=== PATIENT | male | born 1995 | race African-American/Black ===

== ENCOUNTER 2017-05-30 17:26 | Emergency (ER) | payer MEDICAID ==
[~2017-05-30] VITALS: Ht 185.4 cm; Wt 70.3 kg
--- NOTE | 2017-05-30 18:08 | Emergency Room Report ---
History of Present Illness General Chief Complaint: Male Urogenital Problems Source: Patient Present Illness HPI 21 YO Male presents to the ED c/o 12/02 in severity localized pain, swelling, and erythema of the left groin x 3 days. progressive, denies penile d/c , joint pain , dysuria, testicular swelling or testicular pain. pt. denies fevers , chills, nausea or vomiting. pt. states he recently had STD testing performed and was negative for everything, and has not had intercourse since being tested last month. pt. reports he recently shaved in the groin area, and believes that his symptoms may have been due to this. Denies CP, Palpitations, LOC, AMS, dizziness, Changes in Vision, Sensation, paresthesias, or a sudden severe headache. Allergies: Coded Allergies: No Known Allergies (Unverified , 05/30/17) Patient History Past Medical History: see triage record Past Surgical History: none Pertinent Family History: none Reviewed Nursing Documentation: PMH: Agreed, PSxH: Agreed Nursing Documentation-PMH Past Medical History: No Stated History Review of Systems All Other Systems: negative except mentioned in HPI Physical Exam Vital Signs Date Time Temp Pulse Resp B/P (MAP) Pulse Ox O2 Delivery O2 Flow Rate FiO2 05/30/17 17:29 99.1 99 14 123/82 100 Room Air Sp02 EP Interpretation: reviewed, normal General Appearance: no apparent distress, alert, GCS 15, non-toxic Head: normocephalic, atraumatic Eyes: bilateral eye normal inspection, bilateral eye PERRL ENT: hearing grossly normal, normal pharynx, no angioedema, normal voice Neck: full range of motion Respiratory: lungs clear, normal breath sounds Cardiovascular #1: regular rate, rhythm Gastrointestinal: normal bowel sounds, non tender, soft, no guarding, no rebound Rectal: deferred Genitourinary: penis normal, scrotum normal, other - soft tissue abscess with induration, erythema, and fluctuance 2 cm in size left groin, normal testicular exam no swelling cremasteric intact. Musculoskeletal: back normal, gait/station normal, normal range of motion, non- tender Neurologic: alert, oriented x3, responsive, motor strength/tone normal, sensory intact, speech normal Skin: normal color, no rash, warm/dry, well hydrated Lymphatic: no adenopathy Procedures Incision and Drainage Incision and Drainage : Consent: Verbal Blade Size: 11 I & D Procedure: betadine prep Wound Location: other - left groin Wound's Depth, Shape: superficial Wound Length (cm): 1 Wound Explored: contaminated - Moderate purulent and malodorous drainage is expressed. Irrigated w/ Saline (ccs): 500 Anesthesia: 1% Lidocaine Volume Anesthetic (ccs): 1 Splint Applied?: No Sling Applied?: No Patient Tolerated: Well Complications: None Medical Decision Making PA Attestation Dr. Townsend is my supervising Physician whom patient management has been discussed with. Diagnostic Impression: Primary Impression: Abscess ER Course Pt. presents to the ED c/o pain, swelling, and erythema of the left groin x 3 days. progressive, denies penile d/c , joint pain , dysuria, testicular swelling or testicular pain. pt. denies fevers, chills, nausea or vomiting. pt. states he recently had STD testing performed and was negative for everything, and has not had intercourse since being tested last month. pt. reports he recently shaved in the groin area, and believes that his symptoms may have been due to this. Ddx considered but are not limited to cellulitis, abscess, cystic acne, necrotizing fasciitis, LGV, insect bite. Vital signs: are WNL, pt. is afebrile H&PE are most consistent with soft tissue abscess with induration, erythema, and fluctuance 2 cm in size left groin, normal testicular exam no swelling cremasteric intact. ORDERS: none required at this time, the diagnosis is clinical ED INTERVENTIONS: -I & D.- Moderate purulent and malodorous drainage is expressed. -Although this patient had previous test of negative STDs I will discharge this patient with a prescription for doxycycline as it will have coverage for both of LGV and common bacteria for skin abscess DISCHARGE: At this time pt. is stable for d/c to home. Will provide printed patient care instructions, and any necessary prescriptions. Care plan and follow up instructions have been discussed with the patient prior to discharge. Last Vital Signs Date Time Temp Pulse Resp B/P (MAP) Pulse Ox O2 Delivery O2 Flow Rate FiO2 05/30/17 17:29 99.1 99 14 123/82 100 Room Air Disposition: HOME, SELF-CARE Condition: Stable Scripts Doxycycline Hyclate* (VIBRAMYCIN*) 100 Mg Capsule 100 MG ORAL EVERY 12 HOURS for 7 Days, #14 CAP 0 Refills Prov: Stella Dickey 05/30/17 Bacitracin/Polymyxin B Sulfate (BACITRACIN-POLYMYXIN OINTMENT) 28.35 Gm Oint...g. 1 APPLIC TP BID, #28.3 GM Prov: Stella Dickey 05/30/17 Patient Instructions: Abscess Additional Instructions: Take medications as directed. Follow up with a Primary Care Provider in 3-5 days, even if your symptoms have resolved. --Please review list of primary care clinics, if you do not already have a primary care provider Return sooner to ED if new symptoms occur, or current symptoms become worse. - Please note that this Emergency Department Report was dictated using [employer] hand technology software, occasionally this can lead to erroneous entry secondary to interpretation by the dictation equipment. Stella Dickey May 30, 2017 18:08
[2017-05-30] MEDS ORDERED: VIBRAMYCIN100 MG ORAL (18:10)
[2017-05-30] MEDS ORDERED: BACITRACIN-P28.35 GM TP (18:10)
[2017-05-30] MEDS ORDERED: Norco 5mg/325mg tab ORAL ONE (18:15)
[2017-05-30 18:36] VITALS: BP 117/78
== END 2017-05-30 18:40 | disposition home or self-care (01) ==
LOC: EMR 18:35
DX: L02.214 Cutaneous abscess of groin (principal)
CPT/HCPCS: 10060; 99283